=== PATIENT | male | born 1985 | race African-American/Black ===

== ENCOUNTER 2021-02-13 16:25 | Emergency (ER) | payer OTHER ==
[~2021-02-13] VITALS: Ht 172.7 cm; Wt 86.2 kg
[2021-02-13 16:26] VITALS: BP 141/84
--- NOTE | 2021-02-13 17:31 | REP ---
INDICATION: bilateral testicular pain. COMPARISON: None. TECHNIQUE: Standard scrotal ultrasound with the color and Doppler interrogation of the scrotum and contents. FINDINGS: The right testis is 4 x 2.5 x 3.1 cm in the left 4.2 x 2.2 x 2.8 cm. These are homogeneous in echotexture without discrete mass, nodule, cyst or microlithiasis. The epididymal head on the right has a CC diameter of 9.9 mm in the left 7.5 mm there is no hyperemia, cyst or mass the epididymal head. There is no hydrocele or varicocele. Doppler tracings show resistive index 0.68 on the right and 0.72 on the left. IMPRESSION: 1. Normal scrotal ultrasound with testes homogeneous and without mass, cyst, calcification or hyperemia. 2. Epididymis normal size and without cyst, mass or hyperemia. 3. No hydrocele or varicocele. 4. Symmetric color flow in both testes and normal Doppler tracings, no evidence of torsion. <Electronically signed by Abner Jeff > 02/13/21 1825
[2021-02-13] MEDS ORDERED: NAPR-885 PO (18:55)
[2021-02-13] MEDS ORDERED: cefTRIAXone 500MG VIAL (J0696 PER 250MG) IM ONE (18:55)
[2021-02-13] MEDS ORDERED: DOXY-350 PO (18:55)
[2021-02-13] MEDS ORDERED: LIDOCAINE 1% SDV 5ML VIAL DILUENT ONE (18:55)
[2021-02-13 19:55] LABS: GC DNA AMPLIFICATION NEGATIVE (NEGATIVE)
== END 2021-02-13 19:15 | disposition home or self-care (01) ==
LOC: M ED 16:25
DX: N45.1 Epididymitis (principal); Z88.1 Allergy status to other antibiotic agents; Z88.2 Allergy status to sulfonamides; Z88.8 Allergy status to other drugs, medicaments and biological substances
CPT/HCPCS: 76870; 81001; 87661; 93976; 96372; 99282; J0696

== ENCOUNTER → 2021-05-17 | Outpatient (CLI) | payer OTHER ==
[~2021-05-17] MED LIST: DOXY-350 PO; NAPR-885 PO
== END ==
LOC: M PLAIMG 08:08
DX: K76.9 Liver disease, unspecified (principal)

== ENCOUNTER 2022-01-21 06:13 | Emergency (ER) | payer OTHER ==
[~2022-01-21] VITALS: Ht 172.7 cm; Wt 94.0 kg
[2022-01-21 07:51] LABS: BASO % 0.7 % (0.0-1.0); EOS # 0.1 10^3/uL (0.0-0.5); EOS % 1.8 % (0.0-3.0); HEMATOCRIT 50.6 % (42.0-52.0); HEMOGLOBIN 16.7 g/dl (13.5-17.5); LYMPH # 1.6 10^3/uL (1.5-5.0); MEAN CORPUSCULAR HEMOGLOBIN 28.1 pg (27.0-33.0); MONO # 0.4 10^3/uL (0.0-0.8); MONO % 9.2 % (2.0-8.0); NEUTROPHILS # 2.2 10^3/uL (1.5-8.5); NEUTROPHILS % 51.1 % (36.0-66.0); PLATELET COUNT, AUTOMATED 212 10^3/uL (150-450); RED BLOOD COUNT 5.95 10^6/uL (4.30-6.10); WHITE BLOOD COUNT 4.3 10^3/uL (4.0-10.0)
[2022-01-21 08:36] LABS: ALBUMIN 4.2 GM/DL (3.2-5.2); ALT/SGPT 87 U/L (12-78); BILIRUBIN,DIRECT 0.2 MG/DL (0.0-0.2); BLOOD UREA NITROGEN 12 MG/DL (7-18); CALCIUM LEVEL 9.3 MG/DL (8.5-10.1); CARBON DIOXIDE LEVEL 31 MEQ/L (21-32); CHLORIDE LEVEL 104 MEQ/L (98-107); CREATININE FOR GFR 1.12 MG/DL (0.70-1.30); GLOMERULAR FILTRATION RATE > 60.0 (>60); GLUCOSE, FASTING 100 MG/DL (70-100); LIPASE 127 U/L (73-393); POTASSIUM SERUM 3.8 MEQ/L (3.5-5.1); SODIUM LEVEL 140 MEQ/L (136-145); TOTAL PROTEIN 8.1 GM/DL (6.4-8.2)
[2022-01-21] MEDS ORDERED: ACETAMINOPHEN TAB 650MG DOSE (2X325MG) PO ONE (10:20)
[2022-01-21 11:42] VITALS: BP 150/67
== END 2022-01-21 11:46 | disposition home or self-care (01) ==
LOC: M ED 06:13
DX: R93.2 Abnormal findings on diagnostic imaging of liver and biliary tract (principal); R10.31 Right lower quadrant pain; Z88.1 Allergy status to other antibiotic agents; Z88.2 Allergy status to sulfonamides; Z88.6 Allergy status to analgesic agent

== ENCOUNTER → 2022-07-14 | Outpatient (CLI) | payer OTHER ==
[~2022-07-14] MED LIST changes: -DOXY-350 PO; +DOXY-444 PO; +PROHANCE 279.3MG/ML 15ML VIAL ONE; +PROHANCE 279.3MG/ML 5ML VIAL ONE
== END ==
LOC: M PLAIMG 09:32
PROVIDERS: ATTEND Internal Medicine Gastroenterology
DX: R16.0 Hepatomegaly, not elsewhere classified (principal)
CPT/HCPCS: 74183; A9576

== ENCOUNTER 2023-04-24 19:23 | Emergency (ER) | payer OTHER ==
[~2023-04-24] VITALS: Ht 172.7 cm; Wt 86.4 kg
[~2023-04-24 19:23] MED LIST changes: -PROHANCE 279.3MG/ML 15ML VIAL ONE; -PROHANCE 279.3MG/ML 5ML VIAL ONE
[2023-04-24 21:57] VITALS: BP 138/88; TEMP 98.5; O2SAT 99
== END 2023-04-24 22:11 | disposition left against medical advice (07) ==
LOC: M ED 19:23
DX: Z53.21 Procedure and treatment not carried out due to patient leaving prior to being seen by health care provider (principal)